=== PATIENT | male | born 1965 | race Caucasian/White ===

== ENCOUNTER 2023-02-19 14:21 | Observation (INO) | payer OTHER, SELFPAY ==
[2023-02-19] VITALS (11 sets, daily range): BP systolic 111–164; BP diastolic 80–93; PULSE 59–73; RESP 14–26; TEMP 36.1–36.9; O2SAT 97–100
--- NOTE | ~2023-02-19 | XR_ITS ---
EXAMINATION: XR chest 1V portable Exam Date/Time: 02/19/2023 14:50 CDT HISTORY: sob WITH MID STERNAL CHEST PAIN X 2 DAYS Comparison: 08/04/2008. RESULT: Lines, tubes, and devices: Sternotomy wires. An inferior wire is fractured. Lungs and pleura: Clear. Cardiomediastinal silhouette: Stable. Other: No acute osseous or upper abdominal finding. IMPRESSION: No acute cardiopulmonary process. Reviewed, dictated and finalized at location K.
--- NOTE | 2023-02-19 14:22 | ECG_ITS ---
Measurements Intervals [place] Rate: 63 P: 37 AR: 165 QRS: -17 QRSD: 103 T: 121 QT: 396 QTc: 407 Interpretive Statements SINUS RHYTHM POSSIBLE LEFT ATRIAL ENLARGEMENT POSSIBLE LEFT VENTRICULAR HYPERTROPHY ANTEROSEPTAL INFARCT, AGE INDETERMINATE INFERIOR INFARCT, AGE INDETERMINATE BORDERLINE ST-T WAVE ABNORMALITY- LAT/HIGH LAT LEADS BASELINE ARTIFACT- V5-V6 ABNORMAL ECG NO PREVIOUS ECG AVAILABLE FOR COMPARISON Electronically Signed On 02-19-2023 14:57:53 CDT by Oj Brito D.O.
[2023-02-19] MEDS: ASPIRIN 81 MG CHEWABLE TABLET 324 MG PO (14:40)
[2023-02-19] MEDS: ONDANSETRON INJ 4 MG/2 ML VIAL IV PUSH (14:44)
[2023-02-19] MEDS: MORPHINE SULFATE (*CRX) 4 MG/ML INJ IV PUSH (14:44)
[2023-02-19 14:49] LABS: Basophils Percent Auto 0.3 % (0.2-1.2); Eosinophils Absolute Auto 0.2 K/mm3 (0-0.3); Eosinophils Percent Auto 2.1 % (0-4.4); Hematocrit 47.4 % (42.0-52.0); Hemoglobin 16.7 g/dL (14.0-18.0); Immature Granulocyte Absolute 0.06 K/mm3 (0.00-0.031); Immature Granulocyte Percent A 0.6 % (0-0.5); Lymphocytes Absolute Auto 1.61 K/mm3 (0.9-3.2); Lymphocytes Percent Auto 15.7 % (18.3-44.2); Mean Corpuscular HGB Conc 35.2 g/dl (32-36); Mean Corpuscular Volume 85.3 fl (80-100); Mean Platelet Volume 9.9 fl (7.4-10.4); Monocytes Absolute Auto 0.6 K/mm3 (0.1-0.6); Monocytes Percent Auto 5.4 % (2.6-8.5); Neutrophils Absolute Auto 7.8 K/mm3 (1.3-6.7); Neutrophils Percent Auto 75.9 % (45.5-73.1); Platelet Count Result 322 k/mm3 (150-375); Red Blood Count 5.56 M/mm3 (4.6-6.20); Red Cell Distribution Width 12.6 % (11.5-14.5); White Blood Count 10.3 K/mm3 (4.5-10.0)
[2023-02-19 14:59] LABS: Alanine Aminotransferase 21 U/L (6-50); Albumin Level 4.2 g/dL (3.5-5.1); Alkaline Phosphatase 87 U/L (38-126); Anion Gap 8 mmol/L (8-16); Aspartate Amino Transferase 24 U/L (17-59); Bilirubin,Total 0.7 mg/dL (0.2-1.3); Blood Urea Nitrogen 13 mg/dL (9-20); Calcium 8.6 mg/dL (8.4-10.2); Carbon Dioxide 26 mmol/L (22-30); Chloride 103 mmol/L (98-107); Estimated CRCL calculation 78 ml/min; Estimated Glomerular Filt Rate > 60; Glucose 414 mg/dL (65-110); Lipase 115 U/L (23-300); Potassium 3.9 mmol/L (3.4-5.0); Sodium 137 mmol/L (137-145)
[2023-02-19 15:05] LABS: Prothrombin Time 13.5 Seconds (11.1-14.7)
[2023-02-19 15:06] LABS: Partial Thromboplastin Time 27.7 SECONDS (22.3-36.8)
[2023-02-19 15:11] LABS: Troponin I < 0.012 ng/mL (0.000-0.034)
--- NOTE | 2023-02-19 16:30 | ED.CHESTPAIN ---
HPI - Chest Pain General Chief Complaint: Chest Pain Stated Complaint: sob Time Seen by Provider: 02/19/23 14:32 Source: patient and RN notes reviewed Mode of arrival: ambulatory Limitations: no limitations History of Present Illness HPI narrative: This is a 57 year old male with history of CAD s/p cabg who presents for evaluation of chest pain. He states he has had chest pain intermittently for 2 days. He reports pain is located left anterior chest and substernal chest pressure. He states this episode of pain started 1 hour ago. He had CABG in September 2021. He reports his chest pain today is not as severe as when he required bypass. He has associated dizziness and shortness of breath. He rates chest pain as 4/10 currently. EKG concerning for ST elevation for code stemi called. Dr. Layne, post hole digger, came to ER to see patient. He states patient's EKG appears to be old anterior infarct and does not need to go to biological lab technician. Patient was evaluated 2 days ago at [facility] in [place] for his chest pain. PAtient had to leave [place] before complete cardiac evaluation due to daughter in hospital. Waitress is Dr. Melton Related Data Home Medications Medication Instructions Recorded Confirmed aspirin 81 mg capsule 81 mg PO DAILY 02/19/23 02/19/23 cetirizine 10 mg tablet 10 mg PO DAILY 02/19/23 02/19/23 fluticasone propionate 50 1 spray intranasal BID 02/19/23 02/19/23 mcg/actuation nasal spray,suspension insulin glargine 100 unit/mL 25 unit subcut HS 02/19/23 02/19/23 subcutaneous solution (Lantus U-100 Insulin) insulin lispro 100 unit/mL 5 unit subcut TID 02/19/23 02/19/23 subcutaneous pen metformin 1,000 mg tablet 1,000 mg PO BID 02/19/23 02/19/23 metoprolol tartrate 25 mg tablet 25 mg PO BID 02/19/23 02/19/23 rosuvastatin 20 mg tablet 20 mg PO HS 02/19/23 02/19/23 sennosides 8.6 mg-docusate sodium 2 tab-cap PO HS PRN Constipation 02/19/23 02/19/23 50 mg tablet (Senna-S) tamsulosin 0.4 mg capsule 0.4 mg PO HS 02/19/23 02/19/23 Allergies Allergy/AdvReac Type Severity Reaction Status Date / Time nitroglycerin Allergy Severe Other Verified 02/19/23 21:59 meperidine Allergy Mild hives Verified 02/19/23 21:59 Sulfa (Sulfonamide Allergy Mild hives Verified 02/19/23 21:59 Antibiotics) NITRATE AdvReac Severe bradycardia; Uncoded 02/19/23 21:59 unresponsiveness, possible seizure Review of Systems Review of Systems: All systems reviewed & are unremarkable except as noted in HPI and below Constitutional: Constitutional: Denies weakness ENT: Reports nasal congestion Cardiovascular: Cardiovascular: Reports chest pain, Denies syncope, Denies rapid heart rate, Denies irregular heart rhythm, Denies leg edema and Reports dyspnea Respiratory: Respiratory: Denies chest congestion, Reports cough, Denies hemoptysis, Denies excessive phlegm production and Reports dyspnea Gastrointestinal: Gastrointestinal: Denies abdominal pain, Denies hematochezia, Denies diarrhea and Denies vomiting Genitourinary: Genitourinary: Denies hematuria, Denies dysuria, Denies penile discharge and Denies testicular pain Musculoskeletal: Musculoskeletal: Denies joint swelling, Denies loss of height and Denies muscle weakness Neurologic: Denies syncope, Denies focal weakness and Denies weakness PMFSH Past Medical History Medical History Coronary artery disease Insulin dependent diabetes mellitus Surgical History Surgical History (Updated 02/19/23 @ 23:27 by Joan Johnson DO) Hx of CABG (~2021) 3 vessel Family History Family History (Updated 02/19/23 @ 22:51 by Laverne Navarro RN) Mother Congestive heart failure History of open heart surgery Cerebrovascular accident Father History of open heart surgery Sibling Diabetes mellitus Acute myocardial infarction Cerebrovascular accident Social History Social History Smoking pac
[2023-02-19 17:25] LABS: SARS-CoV-2 RNA PCR Negative (Negative)
[2023-02-19 17:40] LABS: D Dimer 0.29 ug/mL (<0.48)
[2023-02-19 17:54] LABS: Troponin I < 0.012 ng/mL (0.000-0.034)
[2023-02-19] MEDS: ENOXAPARIN 80 MG/0.8 ML SYRINGE SUB-Q (19:46)
[2023-02-19 21:02] LABS: Troponin I < 0.012 ng/mL (0.000-0.034)
[2023-02-19 22:29] LABS: Glucose Point of Care 192 mg/dl (65-105)
--- NOTE | 2023-02-19 22:53 | PC.NURSE ---
This patient, Loi Gibbs, was admitted to IMU Room 214-01. Patient/family oriented to hospital policies and general routines including ID bracelet, bed and alarms, visiting hours, pain management, procedures, bathroom and other care routines, personal items, smoking policy, room service/diet, and visiting hours. Information on how to activate the Rapid Response Team has been discussed. Patient/Family are encouraged to report perceived risks to care and to ask questions if they do not understand what they are told or what they should do.
--- NOTE | 2023-02-19 23:22 | PM.IMHP ---
H&P: HPI History of Present Illness Date/Time: 02/19/23 23:22 Chief Complaint: Chest pain Narrative: 57-year-old male with past medical history of insulin-dependent diabetes, BPH, hyperlipidemia and coronary disease status post three-vessel CABG last year who presented to the ER with chest pain. The patient had evidently been evaluated at [facility] on Sunday night and had left AMA yesterday when his 16-year-old daughter was in a car accident. His pain returned any came to our ER for evaluation. In the ER the patient was noted to have pain of 4/10 in intensity. He reported the pain was pressure-like in nature in the center of his chest and similar to his prior heart attack. He did report the pain radiated to the left lower ribcage but he has had the left lower ribcage pain ever since he had his CABG in September of 2021. He stated he could not have nitroglycerin due to severe bradycardia the resulted in cardiac arrest. He received pain medications with improvement in his pain down to 1/10 in intensity. He reports that the pain is been chronic since admission at the same level. His symptoms previously had been intermittent for the last 2 weeks. He does report some shortness of breath but reports this is more due to his nasal congestion and sinus congestion. He reports that he has chronic seasonal allergies and sinus issues. He has been placed on Zyrtec and Flonase without improvement in his symptoms. He has been trying zxpu-gmu-[id number] NyQuil without improvement in his symptoms. He reports significant postnasal drip but denies any significant cough. He has been repetitively clearing his throat and does have some mild sore throat. He denies having any fevers or chills or any recent ill contacts. His COVID PCR in the ER was negative. He denies any lower extremity swelling. He reports that his shortness of breath does seem to get worse throughout the day when he is working. 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 He reports that his glucoses have been intermittently high. He does not know what his last A1c was. He was diagnosed with diabetes 5 years ago and has complications including diabetic neuropathy and suspected retinopathy. His glucoses in the ER were 404. He reports taking his insulin as directed. He reports that his chest pain is similar to when he had his heart attack but is not as intense as when he had his heart attack. He reports that his pain is worse with activity. He reports that since he had his heart attack he has consciously made a decision to lose weight. He has went from around 300 lb down to 187 lb. Review of Systems Review of Systems: Review of systems negative when reviewed unless indicated in HPI. He reports that he does snore. His daughters report that he snores. He has never been tested for sleep apnea. He does have BPH. He reports pain in his right groin and has difficulty lifting his right leg ever since he had his bypass procedure. His veins were harvested from his left lower extremity. COUNT INCLUDES THE [facility] Past Medical History Medical History (Updated 02/20/23 @ 01:08 by Joan Johnson DO) Coronary artery disease Diabetic peripheral neuropathy Diabetic retinopathy History of nephrolithiasis Insulin dependent diabetes mellitus (~2017) Mixed hyperlipidemia Surgical History Surgical History (Updated 02/20/23 @ 01:00 by Joan Johnson DO) History of colonoscopy with polypectomy (~2017) History of lithotripsy Hx of CABG (09/2021) 3 vessel Family History Family History Mother Congestive heart failure History of open heart surgery Cerebrovascular accident Father History of open heart surgery Sibling Diabetes mellitus Acute myocardial infarction Cerebrovascular accident Social History Social History (Updated 02/20/23 @ 01:03 by Joan Johnson DO) Social History: He lives with his 2 daughters ages 16 and 19 years old. Dona
[2023-02-20] VITALS (13 sets, daily range): BP systolic 127–146; BP diastolic 87–90; PULSE 61–83; RESP 18–22; TEMP 35.9–36.3; O2SAT 95–98
[2023-02-20] MEDS: ROSUVASTATIN 10 MG TABLET 20 MG PO (01:24)
[2023-02-20] MEDS: METOPROLOL TARTRATE 25 MG TABLET PO ×2 (01:25→08:21)
[2023-02-20] MEDS: TAMSULOSIN HCL 0.4 MG CAPSULE PO (01:25)
[2023-02-20] MEDS: LORATADINE 10 MG TABLET PO (08:21)
[2023-02-20] MEDS: ASPIRIN 81 MG CHEWABLE TABLET PO (08:21)
[2023-02-20] MEDS: ENOXAPARIN 40 MG/0.4 ML SYRINGE SUB-Q (08:21)
[2023-02-20] MEDS: FLUTICASONE PROPIONATE 0.05% NA SPR 16 GM BTL (*BKC) 1 SPRAY NASAL (08:23)
[2023-02-20 08:28] LABS: Glucose Point of Care 298 mg/dl (65-105)
--- NOTE | 2023-02-20 09:02 | PM.CNCAR ---
Assessment and Plan Assessment and plan (1) Chest pain: Code(s): R07.9 - Chest pain, unspecified Status: Acute Assessment and Plan: Largely atypical chest pain but he does describe some exertional chest discomfort. His troponin levels are negative and EKG does not show any acute ischemic changes. No indication for an ischemic evaluation at this time. He currently is not on any anti-anginal therapy. Has an allergy to nitrates. Will add ranexa to his regimen. Recommend close outpatient follow up with his primary manager motor at [facility]. History of Present Illness History of Present Illness Consult date/time: 02/20/23 09:02 Requesting physician: Vivian Downey MD Consult reason: chest pain Reason For Visit: Chest Pain Narrative: Loi Gibbs is a 57-year-old male with a history of hypertension, diabetes mellitus, dyslipidemia, coronary artery disease status post bypass graft surgery in 2021. Details of this operation are unknown but according to the patient he underwent 3 vessel bypass. He presents to the hospital with a chief complaint of chest pain. He describes central chest discomfort as well as left sided chest pain where his ribs are which has been chronic since his CABG in 2021. He also has some subsernal chest pressure/tightness that extends down to his ribs on the left side. Pain has been relieved with pain medication and he does not have any pain at the time of my visit with him. He does have some shortness of breath as well but he thinks this is because of seasonal allergies/congestion. The chest pain has been constant for several days and he was recently evaluated at [facility] for chest pain but left AMA. He does report some worsening of the pain with exertion. At the time of my visit with him he is lying comfortably in bed and denies any chest pain. Review of Systems Review of Systems: All systems reviewed & are unremarkable except as noted in HPI and below PMFSH Past Medical History Medical History (Updated 02/20/23 @ 01:08 by Joan Johnson DO) Coronary artery disease Diabetic peripheral neuropathy Diabetic retinopathy History of nephrolithiasis Insulin dependent diabetes mellitus (~2017) Mixed hyperlipidemia Surgical History Surgical History (Updated 02/20/23 @ 01:00 by Joan Johnson DO) History of colonoscopy with polypectomy (~2017) History of lithotripsy Hx of CABG (09/2021) 3 vessel Family History Family History Mother Congestive heart failure History of open heart surgery Cerebrovascular accident Father History of open heart surgery Sibling Diabetes mellitus Acute myocardial infarction Cerebrovascular accident Social History Social History (Updated 02/20/23 @ 01:03 by Joan Johnson DO) Social History: He lives with his 2 daughters ages 16 and 19 years old. 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 He is having financial difficulty with house payments and electric pills. He is the sole support for his daughter's as her mother is no longer in the picture. He denies history of alcohol or drug use. He did briefly smoke but has not done so in many years. Code status: Full code (however he would not want long-term ventilator support or a feeding tube.) Healthcare power of substation operator apprentice: Courtney Sheffield (niece) Smoking packs per day: 0.5 Smoking cigarettes per day: 10.0 Years smoked: 3 Smoking pack-years: 1.50 Smoking status: Former smoker Tobacco type: cigarettes Alcohol intake: former Substance use: never Substance use type: does not use Lack of Transportation: No Lack of Food: Never True Current Housing: I Have Housing Concerned About Future Housing: YES Difficulty Paying Gas/Electric Bills: YES Difficulty Paying for Meds: No Currently Unemployed: No Education: High School
[2023-02-20] MEDS: metFORMIN HCL 500 MG TABLET 1000 MG PO ×2 (09:40→11:51)
--- NOTE | 2023-02-20 11:35 | PM.DS ---
DS: Admitting Diagnosis Discharge Date February 20, 2023 Admitting Diagnosis Chest pain DS: Discharge Diagnosis Discharge Diagnosis (1) Unstable angina pectoris: Code(s): I20.0 - Unstable angina Status: Acute (2) Diabetes mellitus with hyperglycemia, with long-term current use of insulin: Qualifiers: Diabetes mellitus type: type 2 Qualified Code(s): E11.65 - Type 2 diabetes mellitus with hyperglycemia; Z79.4 - longterm (current) use of insulin Code(s): E11.65 - Type 2 diabetes mellitus with hyperglycemia; Z79.4 - longterm (current) use of insulin Status: Acute (3) Allergic rhinitis: Qualifiers: Allergic rhinitis trigger: unspecified Allergic rhinitis seasonality: unspecified Qualified Code(s): J30.9 - Allergic rhinitis, unspecified Code(s): J30.9 - Allergic rhinitis, unspecified Status: Acute Plan Patient is having chest pain. Some of symptoms sound as if he may be having some stable angina. Cardiology has been consulted. Patient is being monitored in the IMU. Serial troponins have been negative but patient's troponins were negative just prior to his 3 vessel CABG in 2021. The patient had a echo stress at that time which demonstrated anterior wall wall motion abnormalities. The patient follows with motor mechanic in [address] [place] [address]. Will continue the patient's home Imdur and aspirin therapy. Will continue patient's home metoprolol. Patient received full-dose Lovenox in the ER. Patient has what sounds to me chronically uncontrolled diabetes with multiple complications. Will continue patient's Lantus but will decrease the dose by 5 units as he will be NPO for possible testing or intervention in the morning. Will continue his mealtime bolus insulin and will add sliding scale insulin a.c. HS. Will continue home metformin. Will continue patient's home statin therapy. The patient does have what sounds like allergic rhinitis. He may benefit from sinus irrigation on discharge. I encouraged him to avoid any swot-wdz-ziourdq cold medications given his cardiac history. Would continue daily Zyrtec and b.i.d. Flonase. The patient could have some developing sinusitis but does not seem bacterial in nature at this time and antibiotic therapy would not be indicated. Patient has been admitted as observation status. DS: Summary Hospital Course Hospital Course: Admitted for chest pain workup negative. Cardiology consult, no further workup needed. Continue home medications. Follow up Cardiology Time Spent with Patient Time attestation: Total time spent providing and/or coordinating discharge services: Exam Narrative: Weight 84.1 kg BMI 28.2 Const: Other: Appears older than stated age, no acute distress HENMT: Other: Posterior oral pharyngeal erythema, crowded posterior oropharynx, head is normocephalic atraumatic, no maxillary sinus tenderness Eyes: Other: Pupils are equal and reactive, no scleral icterus, no conjunctival pallor Neck: Other: Large neck circumference, no JVD, trachea midline Chest: Other: Tenderness to palpation of anterior chest but pain different than reason for admission Resp: Other: Clear to auscultation bilaterally, no increased work of breathing Cardio: Other: Regular rate, regular rhythm, 2+ bilateral radial pedal pulses GI: Other: Soft, nontender, nondistended, umbilical hernia noted soft an easily reducible, normoactive bowel sounds Skin: Other: No jaundice, no pallor Neuro: Other: Alert oriented, speech is clear, no facial asymmetry, no localizing neurologic deficits noted during the course of conversation Extrem: Other: No clubbing, cyanosis or edema Psych: Other: Appropriate mood and affect, pleasant and cooperative, judgment and insight intact DS: Data Data Completed and Pending Labs on day of discharge: Labs from last 24 hours
[2023-02-20] MEDS: INSULIN ASPART (*BKC) 100 UNITS/ML SUB-Q ×2 (11:55)
[2023-02-20 12:11] LABS: Glucose Point of Care 295 mg/dl (65-105)
== END 2023-02-20 14:00 | disposition home or self-care (01) ==
LOC: ANHED 14:38 → ANHIMU 20:55
PROVIDERS: Emergency Medicine; Admitting Provider Internal Medicine; Emergency Provider General Practice; Visit Provider Chiropractor
DX: I25.110 Atherosclerotic heart disease of native coronary artery with unstable angina pectoris (principal); Z95.1 Presence of aortocoronary bypass graft; I10 Essential (primary) hypertension; J30.9 Allergic rhinitis, unspecified; Z20.822 Contact with and (suspected) exposure to COVID-19; R06.02 Shortness of breath; R09.81 Nasal congestion; E11.65 Type 2 diabetes mellitus with hyperglycemia; E11.42 Type 2 diabetes mellitus with diabetic polyneuropathy; E11.319 Type 2 diabetes mellitus with unspecified diabetic retinopathy without macular edema; E78.2 Mixed hyperlipidemia; N40.0 Benign prostatic hyperplasia without lower urinary tract symptoms; R94.31 Abnormal electrocardiogram [ECG] [EKG]; K59.00 Constipation, unspecified; R42 Dizziness and giddiness; Z87.891 Personal history of nicotine dependence; Z79.82 Long term (current) use of aspirin; Z79.4 Long term (current) use of insulin; Z79.84 Long term (current) use of oral hypoglycemic drugs; Z79.899 Other long term (current) drug therapy
CPT/HCPCS: 36415; 71045; 80053; 82948; 83690; 84484; 85025; 85380; 85610; 85730; 87635; 93005; 96372; 96374; 96375; 99285; A9270; G0378; J1650; J1815; J2270; J2405

== ENCOUNTER 2023-06-12 16:21 | Emergency (ER) | payer OTHER, SELFPAY ==
--- NOTE | ~2023-06-12 | CT_ITS ---
EXAMINATION: CT cervical spine wo con DATE: 06/12/2023 18:50 INDICATION: Midline neck pain. Fall. TECHNIQUE: Computed tomography (CT) of the cervical spine was performed without intravenous contrast. Automated exposure control and iterative reconstruction technique were employed. The dose-length pro duct was 508.90 mGy-cm. COMPARISON: None FINDINGS: There is mild kyphosis of cervical spine. Vertebral body heights are normal. There is mildl y decreased disc height at C4-C5, severely decreased disc height at C5-C6, and mildly decreased disc height at C6-C7. The following disc levels are specifically discussed: C2-C3: There is no uncovertebral joint osteoarthritis. There is mild right and moderate left facet brent int osteoarthritis. There is no neural foraminal stenosis. There is no central canal stenosis. C3-C4: There is no uncovertebral joint osteoarthritis. There is no facet joint osteoarthritis. There is no neural foraminal stenosis. There is no central canal stenosis. C4-C5: There is mild bilateral uncovertebral joint osteoarthritis. There is mild left facet joint ost eoarthritis. There is mild left neural foraminal stenosis. There is mild central canal stenosis. C5-C6: There is severe bilateral uncovertebral joint osteoarthritis. There is mild bilateral facet brent int osteoarthritis. There is mild bilateral neural foraminal stenosis. There is mild central canal st enosis. C6-C7: There is moderate right and mild left uncovertebral joint osteoarthritis. There is no facet brent int osteoarthritis. There is mild right neural foraminal stenosis. There is mild central canal stenos is. C7-T1: There is no uncovertebral joint osteoarthritis. There is mild bilateral facet joint osteoarthr itis. There is no neural foraminal stenosis. There is no central canal stenosis. IMPRESSION: 1. No fracture. 2. Moderate cervical spondylosis. Reviewed, dictated and finalized at location E. MAKER
--- NOTE | ~2023-06-12 | CT_ITS ---
EXAMINATION: CT thoracic lumbar wo con DATE: 06/12/2023 18:50 INDICATION: Midline back pain. Fall. TECHNIQUE: Computed tomography (CT) of the thoracic and lumbar spine was performed without intravenou s contrast. Automated exposure control and iterative reconstruction technique were employed. The dose -length product was 1333.75 mGy-cm. COMPARISON: CT abdomen and pelvis 08/27/2017 FINDINGS: CT THORACIC SPINE: There is 7 degrees dextrocurvature of thoracic spine. There is mild chronic anteri or wedging of T6, T7, T11, and T12 vertebral bodies. There is mildly decreased disc height at multipl e levels. There is moderately decreased disc height at T11-T12. There is multilevel facet joint osteo arthritis, severe at multiple levels in mid and upper thoracic spine. There is mild neural foraminal stenosis at multiple levels bilaterally. No central canal stenosis. CT LUMBAR SPINE: Bone alignment is normal. There is mild chronic anterior wedging of L1 vertebral bod y. There is mildly decreased disc height at L3-L4 and moderately decreased disc height at L5-S1. The following disc levels are specifically discussed: L1-L2: The disc does not extend beyond the endplate margin. There is mild bilateral facet joint osteo arthritis. There is no neural foraminal stenosis. There is no central canal stenosis. L2-L3: The disc is bulging. There is mild bilateral facet joint osteoarthritis. There is mild bilater al neural foraminal stenosis. There is mild central canal stenosis. L3-L4: The disc is bulging. There is mild bilateral facet joint osteoarthritis. There is mild bilater al neural foraminal stenosis. There is mild central canal stenosis. L4-L5: The disc is bulging. There is mild bilateral facet joint osteoarthritis. There is mild bilater al neural foraminal stenosis. There is mild central canal stenosis. L5-S1: The disc is bulging. There is mild bilateral facet joint osteoarthritis. There is mild bilater al neural foraminal stenosis. There is mild central canal stenosis. IMPRESSION: 1. No fracture. 2. Moderate thoracic and lumbar spondylosis. Reviewed, dictated and finalized at location E. CUTTER
--- NOTE | ~2023-06-12 | XR_ITS ---
EXAMINATION: XR chest 1V DATE: 06/12/2023 18:54 INDICATION: Hypertension. TECHNIQUE: A single frontal view of the chest was obtained. COMPARISON: Chest single view 02/19/2023 FINDINGS: There is no pneumonia, pleural effusion, or pneumothorax. The heart size is normal. 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 IMPRESSION: 1. No acute cardiopulmonary disease. Reviewed, dictated and finalized at location E. NSE INSPECTOR
[2023-06-12 16:24] VITALS: BP 218/118; PULSE 101; RESP 16; O2SAT 99
[2023-06-12 16:41] VITALS: TEMP 36.6
--- NOTE | 2023-06-12 17:46 | ED.GENADULT ---
HPI - General Adult General Chief complaint: Recheck/Abnormal Lab/Rx <Luís Michel PA-C - Last Filed: 06/12/23 17:59> Stated complaint: dr sent in for BP/CT <Luís Michel PA-C - Last Filed: 06/12/23 17:59> Time Seen by Provider: 06/12/23 17:46 <Luís Michel PA-C - Last Filed: 06/12/23 17:59> Focused HPI: This is a 57-year-old male with PMH of CAD, CABG who presents to the ED after referral from PCP for high blood pressure and for CT scans. Patient had a fall over a week ago in which he hurt his cervical, thoracic and lumbar spine. He also has markedly high blood pressure on arrival, PCP wanted him to be evaluate for this. He has been out of his blood pressure medications for the last several days. He tells me he has intermittent chest pains but they do not seem to be exertional like in the past with angina. Denies any further complaint. GENERAL: Well-appearing, well-nourished, and in no acute distress. HEAD: Normocephalic, atraumatic. CHEST: Clear to auscultation. No respiratory distress. HEART: Regular rate and rhythm. NEURO: Alert and oriented x3. Patient screened in triage and initial orders placed. Additional care and disposition to be based upon diagnostic testing and treatment. <Luís Michel PA-C - Last Filed: 06/12/23 17:59> Focused HPI: This is a 57-year-old male with PMH of CAD, CABG who presents to the ED after referral from PCP for high blood pressure and for CT scans. Patient had a fall over a week ago in which he hurt his cervical, thoracic and lumbar spine. He also has markedly high blood pressure on arrival, PCP wanted him to be evaluate for this. He has been out of his blood pressure medications for the last several days. He tells me he has intermittent chest pains but they do not seem to be exertional like in the past with angina. Denies any further complaint. GENERAL: Well-appearing, well-nourished, and in no acute distress. HEAD: Normocephalic, atraumatic. CHEST: Clear to auscultation. No respiratory distress. HEART: Regular rate and rhythm. NEURO: Alert and oriented x3. Patient screened in triage and initial orders placed. Additional care and disposition to be based upon diagnostic testing and treatment. Patient states 1 week ago he had a fall in which she slipped and hit his back and was talking with his primary care physician today who told him to come get checked out. Patient admits to discomfort throughout his entire back and neck on both sides with denies radiation of the pain, has been given pain medications and muscle relaxers from his primary. Denies history of any surgeries to his back. Patient denies urinary incontinence, stool incontinence, saddle anesthesia, history of IV drug use, fever, numbness, weakness. Patient admits to intermittent paresthesias over the past couple days in bilateral feet and hands. Patient admits to being ambulatory without difficulties. <Mateo Weber DO - Last Filed: 06/13/23 04:44> Source: patient <Luís Michel PA-C - Last Filed: 06/12/23 17:59> Mode of arrival: ambulatory <CHANDU Garcia Last Filed: 06/12/23 17:59> Limitations: no limitations <CHANDU Garcia Last Filed: 06/12/23 17:59> Related Data Home medications: Home Medications Medication Instructions Recorded Confirmed aspirin 81 mg capsule 81 mg PO DAILY 02/19/23 02/19/23 cetirizine 10 mg tablet 10 mg PO DAILY 02/19/23 02/19/23 fluticasone propionate 50 1 spray intranasal BID 02/19/23 02/19/23 mcg/actuation nasal spray,suspension insulin glargine 100 unit/mL 25 unit subcut 02/19/23 02/19/23 subcutaneous solution (Lantus U-100 Insulin) insulin lispro 100 unit/mL 5 unit subcut TID 02/19/23 02/19/23 subcutaneous pen metformin 1,000 mg tablet 1,000 mg PO BID 02/19/23 02/19/23 metoprolol tartrate 25 mg tablet 25 mg PO BID 02/19/23 02/19/23 rosuvastatin 20 mg tablet 20 mg PO 02/19/23 02/19/23 sennosides
[2023-06-12 17:48] VITALS: BP 191/121; PULSE 91; RESP 17; O2SAT 100
--- NOTE | 2023-06-12 17:56 | ECG_ITS ---
Measurements Intervals [place] Rate: 86 P: 51 LA: 149 QRS: -9 QRSD: 109 T: 109 QT: 369 QTc: 442 Interpretive Statements SINUS RHYTHM ATRIAL PREMATURE COMPLEX POSSIBLE LEFT ATRIAL ENLARGEMENT ANTEROSEPTAL INFARCT, AGE INDETERMINATE CONSIDER INFERIOR INFARCT, AGE INDETERMINATE BORDERLINE ST-T WAVE ABNORMALITY- HIGH LATERAL LEADS BASELINE ARTIFACT- V6 ABNORMAL ECG COMPARED TO ECG 02/19/2023 14:27:13 NO SIGNIFICANT CHANGES Electronically Signed On 06-12-2023 20:39:16 CRITICAL CARE UNIT NURSE by Oj Brito D.O.
[2023-06-12 18:11] LABS: Basophils Percent Auto 0.3 % (0.2-1.2); Eosinophils Absolute Auto 0.1 K/mm3 (0-0.3); Eosinophils Percent Auto 0.9 % (0-4.4); Hematocrit 48.7 % (42.0-52.0); Immature Granulocyte Absolute 0.05 K/mm3 (0.00-0.031); Immature Granulocyte Percent A 0.4 % (0-0.5); Lymphocytes Absolute Auto 2.46 K/mm3 (0.9-3.2); Lymphocytes Percent Auto 20.9 % (18.3-44.2); Mean Corpuscular HGB Conc 34.9 g/dl (32-36); Mean Corpuscular Hemoglobin 29.3 pg (26-34); Mean Platelet Volume 9.9 fl (7.4-10.4); Monocytes Absolute Auto 0.5 K/mm3 (0.1-0.6); Monocytes Percent Auto 4.5 % (2.6-8.5); Neutrophils Absolute Auto 8.6 K/mm3 (1.3-6.7); Platelet Count Result 303 k/mm3 (150-375); Red Cell Distribution Width 12.8 % (11.5-14.5); White Blood Count 11.8 K/mm3 (4.5-10.0)
[2023-06-12 18:22] LABS: Alanine Aminotransferase 20 U/L (6-50); Albumin Level 4.7 g/dL (3.5-5.1); Alkaline Phosphatase 109 U/L (38-126); Anion Gap 12 mmol/L (8-16); Aspartate Amino Transferase 20 U/L (17-59); Bilirubin,Total 0.6 mg/dL (0.2-1.3); Blood Urea Nitrogen 20 mg/dL (9-20); Calcium 9.3 mg/dL (8.4-10.2); Carbon Dioxide 24 mmol/L (22-30); Chloride 99 mmol/L (98-107); Estimated CRCL calculation 113 ml/min; Estimated Glomerular Filt Rate > 60; Glucose 401 mg/dL (65-110); Potassium 3.9 mmol/L (3.4-5.0); Sodium 135 mmol/L (137-145)
[2023-06-12 18:33] LABS: Troponin I 0.012 ng/mL (0.000-0.034)
[2023-06-12 20:24] VITALS: BP 187/99; PULSE 90; RESP 16; O2SAT 100
== END 2023-06-12 20:26 | disposition home or self-care (01) ==
PROVIDERS: Physician Assistant; Emergency Provider Student in an Organized Health Care Education/Training Program
DX: S16.1XXA Strain of muscle, fascia and tendon at neck level, initial encounter (principal); S39.012A Strain of muscle, fascia and tendon of lower back, initial encounter; S29.012A Strain of muscle and tendon of back wall of thorax, initial encounter; I10 Essential (primary) hypertension; I25.10 Atherosclerotic heart disease of native coronary artery without angina pectoris; E11.42 Type 2 diabetes mellitus with diabetic polyneuropathy; E11.319 Type 2 diabetes mellitus with unspecified diabetic retinopathy without macular edema; E78.2 Mixed hyperlipidemia; I25.2 Old myocardial infarction; Z87.891 Personal history of nicotine dependence; Z95.1 Presence of aortocoronary bypass graft; M47.812 Spondylosis without myelopathy or radiculopathy, cervical region; M47.816 Spondylosis without myelopathy or radiculopathy, lumbar region; M47.814 Spondylosis without myelopathy or radiculopathy, thoracic region; Z79.82 Long term (current) use of aspirin; Z79.84 Long term (current) use of oral hypoglycemic drugs; Z79.4 Long term (current) use of insulin; W01.0XXA Fall on same level from slipping, tripping and stumbling without subsequent striking against object, initial encounter
CPT/HCPCS: 36415; 71045; 72125; 72128; 72131; 80053; 84484; 85025; 93005; 99284